=== PATIENT | male | born 1955 | race Caucasian/White ===

== ENCOUNTER 2020-12-13 15:58 | Outpatient (CLI) | payer MEDICAID, SELFPAY ==
[2020-12-13 16:34] LABS: Abs Immature Grans 0.06 10^3/uL (0.0-0.06); Absolute Basophil Count 0.08 10^3/uL (0.0-0.2); Absolute Eosinophil Count 0.69 10^3/uL (0.0-0.7); Absolute Monocyte Count 0.93 10^3/uL (0.1-0.8); Basophils % 0.7; HCT 42.2 % (40.0-50.0); HGB 13.9 g/dL (13.5-17.5); Immature Grans % 0.5; Lymphocytes % 19.2; MCH 29.7 pg (27.0-33.0); MCHC 32.9 % (32.0-36.0); MCV 90.2 fL (80-95); MPV 10.2 fL (8.0-11.0); Monocytes % 8.1; Neutrophils % 65.5; Nucleated RBC 0 %; Platelet Count 334 10^3/uL (130-400); RBC 4.68 10^6/uL (4.36-5.78); RDW 13.9 % (11.8-14.1); RDW-SD 46.4 fL; WBC 11.54 10^3/uL (4.4-10.8)
[2020-12-13 16:35] LABS: Absolute Lymphocyte Count 2.22 10^3/uL (1.2-3.4); Absolute Neutrophil Count 7.56 10^3/uL (1.2-6.7)
[2020-12-13 17:11] LABS: Iron 71 ug/dL (65-175); Total Iron Binding Capacity 352 ug/dL (250-450)
[2020-12-13 17:26] LABS: ALT 18 U/L (16-63); AST 8 U/L (15-37); Albumin 3.7 g/dL (3.4-5.0); Alkaline Phosphatase 86 U/L (46-116); Anion Gap 8.6 mmol/L (3-11); BUN 18 mg/dL (7-18); Bilirubin, Total 0.4 mg/dL (0.2-1.0); CO2 27.4 mmol/L (21.0-32.0); Calcium 8.8 mg/dL (8.5-10.1); Chloride 107 mmol/L (98-107); Ferritin 16 ng/mL (26-388); Glucose 101 mg/dL (74-106); Sodium 143 mmol/L (136-145); Total Protein 7.1 g/dL (6.4-8.2)
[2020-12-13 22:11] LABS: CEA <2.0 ng/mL (See Note)
[2020-12-18 19:16] LABS: DPYD Predicted Toxicity Risk Normal
== END 2020-12-13 15:59 | disposition home or self-care (01) ==
PROVIDERS: PCP Family Medicine; Visit Provider Internal Medicine Hematology & Oncology
DX: C20 Malignant neoplasm of rectum (principal)
CPT/HCPCS: 36415; 80053; 81232; 82378; 82728; 83540; 83550; 85025

== ENCOUNTER 2021-02-07 05:52 | Outpatient (RCR) | payer MEDICAID, SELFPAY ==
[2021-01-10] MEDS: Normal Saline Flush 10 ML SYR IVP (08:44)
[2021-01-10 08:52] LABS: Abs Immature Grans 0.05 10^3/uL (0.0-0.06); Absolute Basophil Count 0.05 10^3/uL (0.0-0.2); Absolute Eosinophil Count 0.49 10^3/uL (0.0-0.7); Absolute Monocyte Count 0.97 10^3/uL (0.1-0.8); Absolute Neutrophil Count 5.94 10^3/uL (1.2-6.7); Basophils % 0.5; Eosinophils % 5.2; HCT 37.7 % (40.0-50.0); HGB 12.6 g/dL (13.5-17.5); Immature Grans % 0.5; Lymphocytes % 21.1; MCH 29.8 pg (27.0-33.0); MCHC 33.4 % (32.0-36.0); MCV 89.1 fL (80-95); MPV 9.8 fL (8.0-11.0); Monocytes % 10.2; Neutrophils % 62.5; Nucleated RBC 0 %; Platelet Count 285 10^3/uL (130-400); RBC 4.23 10^6/uL (4.36-5.78); RDW 13.5 % (11.8-14.1); RDW-SD 43.5 fL
[2021-01-10 09:03] LABS: ALT 17 U/L (16-63); AST 12 U/L (15-37); Albumin 3.2 g/dL (3.4-5.0); Alkaline Phosphatase 78 U/L (46-116); Anion Gap 11.5 mmol/L (3-11); BUN 24 mg/dL (7-18); Bilirubin, Total 0.3 mg/dL (0.2-1.0); CO2 24.5 mmol/L (21.0-32.0); CREATININE 0.9 mg/dL (0.70-1.30); Calcium 8.2 mg/dL (8.5-10.1); Chloride 108 mmol/L (98-107); Glucose 113 mg/dL (74-106); Potassium 3.6 mmol/L (3.5-5.1); Sodium 144 mmol/L (136-145); Total Protein 6.2 g/dL (6.4-8.2)
[2021-01-24 07:28] LABS: Abs Immature Grans 0.05 10^3/uL (0.0-0.06); Absolute Basophil Count 0.08 10^3/uL (0.0-0.2); Absolute Eosinophil Count 0.38 10^3/uL (0.0-0.7); Absolute Lymphocyte Count 2.58 10^3/uL (1.2-3.4); Absolute Neutrophil Count 4.44 10^3/uL (1.2-6.7); Basophils % 0.9; Eosinophils % 4.4; HCT 37.7 % (40.0-50.0); HGB 12.6 g/dL (13.5-17.5); Immature Grans % 0.6; Lymphocytes % 29.9; MCH 29.9 pg (27.0-33.0); MCHC 33.4 % (32.0-36.0); MCV 89.5 fL (80-95); MPV 9.7 fL (8.0-11.0); Monocytes % 12.7; Neutrophils % 51.5; Nucleated RBC 0 %; Platelet Count 246 10^3/uL (130-400); RBC 4.21 10^6/uL (4.36-5.78); RDW 14.6 % (11.8-14.1); RDW-SD 46.2 fL; WBC 8.63 10^3/uL (4.4-10.8)
[2021-01-24 07:43] LABS: ALT 17 U/L (16-63); AST 11 U/L (15-37); Albumin 3.2 g/dL (3.4-5.0); Alkaline Phosphatase 76 U/L (46-116); Anion Gap 8.7 mmol/L (3-11); BUN 14 mg/dL (7-18); Bilirubin, Total 0.2 mg/dL (0.2-1.0); CO2 26.3 mmol/L (21.0-32.0); Calcium 8.2 mg/dL (8.5-10.1); Chloride 106 mmol/L (98-107); Glucose 108 mg/dL (74-106); Potassium 3.7 mmol/L (3.5-5.1); Sodium 141 mmol/L (136-145); Total Protein 6.2 g/dL (6.4-8.2)
[2021-01-27 09:37] LABS: CEA <2.0 ng/mL (See Note)
[2021-01-31 09:49] LABS: Abs Immature Grans 0.06 10^3/uL (0.0-0.06); Absolute Basophil Count 0.08 10^3/uL (0.0-0.2); Absolute Eosinophil Count 0.39 10^3/uL (0.0-0.7); Absolute Lymphocyte Count 2.08 10^3/uL (1.2-3.4); Absolute Monocyte Count 1.16 10^3/uL (0.1-0.8); Absolute Neutrophil Count 4.23 10^3/uL (1.2-6.7); Eosinophils % 4.9; HCT 43.2 % (40.0-50.0); HGB 14.3 g/dL (13.5-17.5); Immature Grans % 0.8; MCHC 33.1 % (32.0-36.0); MCV 90.6 fL (80-95); MPV 10.1 fL (8.0-11.0); Monocytes % 14.5; Neutrophils % 52.8; Nucleated RBC 0 %; Platelet Count 252 10^3/uL (130-400); RBC 4.77 10^6/uL (4.36-5.78); RDW 14.5 % (11.8-14.1); RDW-SD 48.1 fL
[2021-01-31 10:01] LABS: ALT 23 U/L (16-63); AST 14 U/L (15-37); Albumin 3.7 g/dL (3.4-5.0); Alkaline Phosphatase 94 U/L (46-116); Anion Gap 8.8 mmol/L (3-11); BUN 19 mg/dL (7-18); Bilirubin, Total 0.2 mg/dL (0.2-1.0); CO2 25.2 mmol/L (21.0-32.0); CREATININE 0.9 mg/dL (0.70-1.30); Calcium 8.6 mg/dL (8.5-10.1); Chloride 105 mmol/L (98-107); Glucose 105 mg/dL (74-106); Potassium 4.1 mmol/L (3.5-5.1); Sodium 139 mmol/L (136-145); Total Protein 7.1 g/dL (6.4-8.2)
[2021-01-31] MEDS: Normal Saline Flush 10 ML SYR IVP (10:14)
[2021-02-03 09:25] LABS: CEA <2.0 ng/mL (See Note)
[2021-02-07] MEDS: Normal Saline Flush 10 ML SYR IVP (07:40)
[2021-02-07 07:59] LABS: Abs Immature Grans 0.11 10^3/uL (0.0-0.06); Absolute Lymphocyte Count 2.28 10^3/uL (1.2-3.4); Basophils % 0.7; Eosinophils % 6.1; HCT 40.1 % (40.0-50.0); HGB 13.4 g/dL (13.5-17.5); Immature Grans % 0.7; Lymphocytes % 15.5; MCH 30.2 pg (27.0-33.0); MCHC 33.4 % (32.0-36.0); MCV 90.5 fL (80-95); Monocytes % 9.9; Neutrophils % 67.1; Nucleated RBC 0 %; Platelet Count 219 10^3/uL (130-400); RBC 4.43 10^6/uL (4.36-5.78); RDW 14.8 % (11.8-14.1); WBC 14.68 10^3/uL (4.4-10.8)
[2021-02-07 08:01] LABS: Absolute Monocyte Count 1.45 10^3/uL (0.1-0.8); Absolute Neutrophil Count 9.85 10^3/uL (1.2-6.7)
[2021-02-07 08:17] LABS: ALT 22 U/L (16-63); AST 12 U/L (15-37); Albumin 3.5 g/dL (3.4-5.0); Alkaline Phosphatase 84 U/L (46-116); Anion Gap 10.8 mmol/L (3-11); BUN 18 mg/dL (7-18); Bilirubin, Total 0.5 mg/dL (0.2-1.0); CO2 25.2 mmol/L (21.0-32.0); Calcium 8.7 mg/dL (8.5-10.1); Chloride 105 mmol/L (98-107); Glucose 101 mg/dL (74-106); Potassium 3.5 mmol/L (3.5-5.1); Sodium 141 mmol/L (136-145)
[2021-02-07 18:36] LABS: CEA <2.0 ng/mL (See Note)
== END 2021-02-08 23:59 | disposition home or self-care (01) ==
LOC: INF 05:52
PROVIDERS: PCP Family Medicine; Visit Provider Internal Medicine Hematology & Oncology
DX: C20 Malignant neoplasm of rectum (principal); Z45.2 Encounter for adjustment and management of vascular access device
CPT/HCPCS: 36415; 36591; 80053; 82378; 85025

== ENCOUNTER 2021-03-07 03:49 | Outpatient (RCR) | payer MEDICAID, SELFPAY ==
[2021-02-21] MEDS: Normal Saline Flush 10 ML SYR IVP (09:51)
[2021-02-21 10:00] LABS: Abs Immature Grans 0.03 10^3/uL (0.0-0.06); Absolute Basophil Count 0.07 10^3/uL (0.0-0.2); Absolute Eosinophil Count 0.81 10^3/uL (0.0-0.7); Absolute Lymphocyte Count 2.28 10^3/uL (1.2-3.4); Absolute Monocyte Count 0.95 10^3/uL (0.1-0.8); Absolute Neutrophil Count 5.06 10^3/uL (1.2-6.7); Basophils % 0.8; Eosinophils % 8.8; HCT 39.9 % (40.0-50.0); HGB 13.3 g/dL (13.5-17.5); Immature Grans % 0.3; Lymphocytes % 24.8; MCH 30.3 pg (27.0-33.0); MCHC 33.3 % (32.0-36.0); MCV 90.9 fL (80-95); MPV 9.9 fL (8.0-11.0); Monocytes % 10.3; Nucleated RBC 0 %; Platelet Count 210 10^3/uL (130-400); RBC 4.39 10^6/uL (4.36-5.78); RDW 15.1 % (11.8-14.1); RDW-SD 49.7 fL
[2021-02-21 10:12] LABS: Albumin 3.5 g/dL (3.4-5.0); BUN 16 mg/dL (7-18); Calcium 8.6 mg/dL (8.5-10.1); Glucose 105 mg/dL (74-106); Total Protein 6.8 g/dL (6.4-8.2)
[2021-02-21 10:13] LABS: ALT 42 U/L (16-63); AST 33 U/L (15-37); Alkaline Phosphatase 82 U/L (46-116); Anion Gap 8.1 mmol/L (3-11); Bilirubin, Total 0.5 mg/dL (0.2-1.0); CO2 24.9 mmol/L (21.0-32.0); Chloride 107 mmol/L (98-107); Potassium 3.8 mmol/L (3.5-5.1); Sodium 140 mmol/L (136-145)
[2021-02-21 17:22] LABS: CEA <2.0 ng/mL (See Note)
[2021-03-07] MEDS: Normal Saline Flush 10 ML SYR IVP (07:13)
[2021-03-07 07:21] LABS: Abs Immature Grans 0.04 10^3/uL (0.0-0.06); Absolute Basophil Count 0.05 10^3/uL (0.0-0.2); Absolute Eosinophil Count 0.36 10^3/uL (0.0-0.7); Absolute Lymphocyte Count 2.31 10^3/uL (1.2-3.4); Absolute Monocyte Count 1.24 10^3/uL (0.1-0.8); Basophils % 0.6; Eosinophils % 4.2; HCT 37.7 % (40.0-50.0); HGB 12.6 g/dL (13.5-17.5); Immature Grans % 0.5; Lymphocytes % 27.2; MCH 30.1 pg (27.0-33.0); MCHC 33.4 % (32.0-36.0); MCV 90.2 fL (80-95); MPV 10.3 fL (8.0-11.0); Monocytes % 14.6; Neutrophils % 52.9; Nucleated RBC 0 %; Platelet Count 172 10^3/uL (130-400); RBC 4.18 10^6/uL (4.36-5.78); RDW 15.5 % (11.8-14.1); RDW-SD 50.3 fL
[2021-03-07 07:42] LABS: ALT 19 U/L (16-63); AST 16 U/L (15-37); Albumin 3.2 g/dL (3.4-5.0); Alkaline Phosphatase 90 U/L (46-116); Anion Gap 9.2 mmol/L (3-11); BUN 14 mg/dL (7-18); Bilirubin, Total 0.3 mg/dL (0.2-1.0); CO2 25.8 mmol/L (21.0-32.0); Calcium 8.4 mg/dL (8.5-10.1); Chloride 106 mmol/L (98-107); Glucose 103 mg/dL (74-106); Potassium 3.5 mmol/L (3.5-5.1); Sodium 141 mmol/L (136-145); Total Protein 6.6 g/dL (6.4-8.2)
[2021-03-07 17:58] LABS: CEA <2.0 ng/mL (See Note)
== END 2021-03-11 23:59 | disposition home or self-care (01) ==
LOC: INF 03:49
PROVIDERS: PCP Family Medicine; Visit Provider Internal Medicine Hematology & Oncology
DX: C20 Malignant neoplasm of rectum (principal); Z45.2 Encounter for adjustment and management of vascular access device
CPT/HCPCS: 36591; 80053; 82378; 85025

== ENCOUNTER 2021-03-31 03:22 | Outpatient (RCR) | payer MEDICAID, SELFPAY ==
[2021-03-21] MEDS: Normal Saline Flush 10 ML SYR IVP (08:10)
[2021-03-21 08:45] LABS: Abs Immature Grans 0.07 10^3/uL (0.0-0.06); Absolute Basophil Count 0.06 10^3/uL (0.0-0.2); Absolute Eosinophil Count 0.22 10^3/uL (0.0-0.7); Absolute Lymphocyte Count 2.58 10^3/uL (1.2-3.4); Absolute Monocyte Count 1.66 10^3/uL (0.1-0.8); Absolute Neutrophil Count 3.38 10^3/uL (1.2-6.7); Basophils % 0.8; Eosinophils % 2.8; HCT 38.6 % (40.0-50.0); HGB 13.4 g/dL (13.5-17.5); Immature Grans % 0.9; Lymphocytes % 32.4; MCH 31.2 pg (27.0-33.0); MCHC 34.7 % (32.0-36.0); MPV 10.3 fL (8.0-11.0); Monocytes % 20.8; Neutrophils % 42.3; Nucleated RBC 0 %; Platelet Count 199 10^3/uL (130-400); RBC 4.29 10^6/uL (4.36-5.78); RDW 16.6 % (11.8-14.1); WBC 7.97 10^3/uL (4.4-10.8)
[2021-03-21 08:58] LABS: ALT 22 U/L (16-63); AST 18 U/L (15-37); Albumin 2.8 g/dL (3.4-5.0); Alkaline Phosphatase 62 U/L (46-116); Anion Gap 8.4 mmol/L (3-11); BUN 12 mg/dL (7-18); Bilirubin, Total 0.6 mg/dL (0.2-1.0); CO2 27.6 mmol/L (21.0-32.0); CREATININE 1.1 mg/dL (0.70-1.30); Calcium 8.1 mg/dL (8.5-10.1); Chloride 102 mmol/L (98-107); Glucose 119 mg/dL (74-106); Potassium 3.3 mmol/L (3.5-5.1); Sodium 138 mmol/L (136-145); Total Protein 5.8 g/dL (6.4-8.2)
[2021-03-21 09:11] LABS: Diff Comment Agrees w/ Instrument; RBC Morphology Normal
[2021-03-21 19:18] LABS: CEA <2.0 ng/mL (See Note)
[2021-03-28] MEDS: Normal Saline Flush 10 ML SYR IVP (07:48)
[2021-03-28 07:59] LABS: Abs Immature Grans 0.09 10^3/uL (0.0-0.06); Absolute Basophil Count 0.06 10^3/uL (0.0-0.2); Absolute Eosinophil Count 0.17 10^3/uL (0.0-0.7); Absolute Lymphocyte Count 2.55 10^3/uL (1.2-3.4); Absolute Monocyte Count 1.28 10^3/uL (0.1-0.8); Absolute Neutrophil Count 3.85 10^3/uL (1.2-6.7); Basophils % 0.8; Eosinophils % 2.1; HCT 37.7 % (40.0-50.0); HGB 12.4 g/dL (13.5-17.5); Immature Grans % 1.1; Lymphocytes % 31.9; MCH 30.5 pg (27.0-33.0); MCHC 32.9 % (32.0-36.0); MCV 92.6 fL (80-95); Neutrophils % 48.1; Nucleated RBC 0 %; Platelet Count 267 10^3/uL (130-400); RBC 4.07 10^6/uL (4.36-5.78); RDW 17.2 % (11.8-14.1); RDW-SD 58.5 fL
[2021-03-28 08:23] LABS: ALT 23 U/L (16-63); AST 22 U/L (15-37); Albumin 2.8 g/dL (3.4-5.0); Alkaline Phosphatase 78 U/L (46-116); Anion Gap 4.3 mmol/L (3-11); BUN 13 mg/dL (7-18); Bilirubin, Total 0.3 mg/dL (0.2-1.0); CO2 29.7 mmol/L (21.0-32.0); CREATININE 0.9 mg/dL (0.70-1.30); Calcium 8.4 mg/dL (8.5-10.1); Chloride 106 mmol/L (98-107); Glucose 104 mg/dL (74-106); Sodium 140 mmol/L (136-145)
[2021-03-28 17:55] LABS: CEA <2.0 ng/mL (See Note)
== END 2021-04-10 23:59 | disposition home or self-care (01) ==
LOC: INF 03:22
PROVIDERS: PCP Family Medicine; Visit Provider Internal Medicine Hematology & Oncology
DX: C20 Malignant neoplasm of rectum (principal); Z45.2 Encounter for adjustment and management of vascular access device
CPT/HCPCS: 36591; 80053; 82378; 85025

== ENCOUNTER 2021-04-25 00:52 | Outpatient (RCR) | payer MEDICAID, SELFPAY ==
[2021-04-11] MEDS: Normal Saline Flush 10 ML SYR IVP (08:36)
[2021-04-11 08:43] LABS: Abs Immature Grans 0.02 10^3/uL (0.0-0.06); Absolute Basophil Count 0.06 10^3/uL (0.0-0.2); Absolute Eosinophil Count 0.34 10^3/uL (0.0-0.7); Absolute Lymphocyte Count 2.05 10^3/uL (1.2-3.4); Absolute Neutrophil Count 5.94 10^3/uL (1.2-6.7); Basophils % 0.6; Eosinophils % 3.6; HCT 38.1 % (40.0-50.0); HGB 12.4 g/dL (13.5-17.5); Immature Grans % 0.2; Lymphocytes % 21.6; MCH 30.6 pg (27.0-33.0); MCHC 32.5 % (32.0-36.0); MCV 94.1 fL (80-95); MPV 10.6 fL (8.0-11.0); Monocytes % 11.6; Neutrophils % 62.4; Nucleated RBC 0 %; Platelet Count 155 10^3/uL (130-400); RBC 4.05 10^6/uL (4.36-5.78); RDW-SD 58.6 fL; WBC 9.51 10^3/uL (4.4-10.8)
[2021-04-11 09:06] LABS: ALT 27 U/L (16-63); AST 19 U/L (15-37); Albumin 3.2 g/dL (3.4-5.0); Alkaline Phosphatase 78 U/L (46-116); Anion Gap 9.9 mmol/L (3-11); BUN 14 mg/dL (7-18); Bilirubin, Total 0.3 mg/dL (0.2-1.0); CO2 27.1 mmol/L (21.0-32.0); CREATININE 0.9 mg/dL (0.70-1.30); Calcium 8.6 mg/dL (8.5-10.1); Chloride 105 mmol/L (98-107); Glucose 98 mg/dL (74-106); Potassium 3.8 mmol/L (3.5-5.1); Sodium 142 mmol/L (136-145); Total Protein 6.7 g/dL (6.4-8.2)
[2021-04-11 17:48] LABS: CEA <2.0 ng/mL (See Note)
[2021-04-25 08:30] LABS: Abs Immature Grans 0.04 10^3/uL (0.0-0.06); Absolute Basophil Count 0.05 10^3/uL (0.0-0.2); Absolute Eosinophil Count 0.51 10^3/uL (0.0-0.7); Absolute Lymphocyte Count 2.09 10^3/uL (1.2-3.4); Absolute Monocyte Count 1.15 10^3/uL (0.1-0.8); Absolute Neutrophil Count 5.32 10^3/uL (1.2-6.7); Basophils % 0.5; Eosinophils % 5.6; HCT 38.2 % (40.0-50.0); HGB 12.6 g/dL (13.5-17.5); Immature Grans % 0.4; Lymphocytes % 22.8; MCH 31.3 pg (27.0-33.0); MCV 94.8 fL (80-95); MPV 10.8 fL (8.0-11.0); Monocytes % 12.6; Neutrophils % 58.1; Nucleated RBC 0 %; Platelet Count 146 10^3/uL (130-400); RBC 4.03 10^6/uL (4.36-5.78); RDW 17.1 % (11.8-14.1); RDW-SD 59.3 fL; WBC 9.16 10^3/uL (4.4-10.8)
[2021-04-25] MEDS: Normal Saline Flush 10 ML SYR IVP (08:38)
[2021-04-25 08:45] LABS: ALT 27 U/L (16-63); AST 25 U/L (15-37); Albumin 3.4 g/dL (3.4-5.0); Alkaline Phosphatase 87 U/L (46-116); Anion Gap 10.1 mmol/L (3-11); BUN 13 mg/dL (7-18); Bilirubin, Total 0.6 mg/dL (0.2-1.0); CO2 26.9 mmol/L (21.0-32.0); CREATININE 0.9 mg/dL (0.70-1.30); Calcium 8.7 mg/dL (8.5-10.1); Chloride 104 mmol/L (98-107); Glucose 106 mg/dL (74-106); Potassium 3.3 mmol/L (3.5-5.1); Sodium 141 mmol/L (136-145); Total Protein 6.8 g/dL (6.4-8.2)
== END 2021-05-11 23:59 | disposition home or self-care (01) ==
LOC: INF 00:52
PROVIDERS: PCP Family Medicine; Visit Provider Internal Medicine Hematology & Oncology
DX: C20 Malignant neoplasm of rectum (principal); Z45.2 Encounter for adjustment and management of vascular access device
CPT/HCPCS: 36591; 80053; 82378; 85025

== ENCOUNTER 2021-06-04 02:11 | Outpatient (RCR) | payer MEDICAID, SELFPAY ==
--- OUTSIDE RECORDS SUMMARY | 2021-05-23 01:38 | XMS_ITS ---
:1955 Author Care Team Providers Name Role Phone DR. GEOFFREY NEAL Primary Care Provider [phone] DR. GEOFFREY NEAL Referring Provider [phone] Allergies Code Code System Name Reaction Severity Status Onset NKDA ? Notes: Some allergies listed in Document: #[id number] could not be added to this patient's chart. Please review this docu ment and add these allergies to the patient's chart manually as needed. Medications Name Status Start Date Stop Date ? ? albuterol sulfate HFA 90 mcg/actuation aerosol inhaler Active ? Not available INHALE 2 PUFFS BY MOUTH EVERY 4 HOURS NEEDED amoxicillin 500 mg capsule Active ? Not a vailable take 1 capsule by mouth every 8 hours before meals for 10 days amoxicillin 500 mg-potassium clavulanate Active ? Not available 125 mg tablet amoxicillin 875 mg tablet Active ? Not av ailable amoxicillin 875 mg-potassium clavulanate 125 mg tablet Active ? Not available TAKE 1 TABLET BY MOUTH EVERY 12 HOURS FOR 10 DAYS cephalexin 500 mg capsule Active ? Not av ailable desoximetasone 0.25 % topical ointment Active ? Not available APPLY TOPICALLY TO THE AFFECTED AREA(S) ONCE DAILY doxycycline monohydrate 100 mg capsule Active ? Not available TAKE 1 CAPSULE BY MOUTH TWICE DAILY FOR 10 DAYS hydrocodone 5 mg-acetaminophen 325 mg Active ? Not available tablet dsufayzl-wcoyobpdj-srraabtr 3.5 mg/mL-10,000 unit/mL-0.1% eye dr ops Active ? Not available INSTILL 1 DROP IN AFFECTED EYE(S) BY OPHTHALMIC ROUTE TWICE A D AY prednisone 20 mg tablet Active ? Not avai lable TAKE 2 TABLETS BY MOUTH ONCE DAILY FOR 5 DAYS sulfamethoxazole 800 mg-trimethoprim 160 Active ? Not available mg tablet Problems Name Status Onset Date Source ? Herpes Zoster Unknown ? ? Anemia Active ? ? Anxiety State Unknown ? ? Generalized Anxiety Disorder Active ? ? Depressive Disorder Active ? ? Hordeolum Active ? Encounter Chalazion Unknown ? ? Chalazion Active ? Encounter Infective Otitis Externa Unknown ? ? Impacted Cerumen Unknown ? ? Wax in Ear Canal Active ? Encounter Unilateral Hearing Loss Active ? Encounte r Inguinal Hernia Active ? Encounter Contact Dermatitis Due to Plants, Except Food Unknown ? ? Contact Dermatitis Unknown ? ? Contact Dermatitis Active ? Encounter Chronic Contact Dermatitis Active ? Encou nter Low Back Pain Unknown ? ? Headache Unknown ? ? Procedures Date Name Performed by ? 07/12/2004 Hernia Repair Information not avai lable Notes: (R) inguinal hernis [place] 07/12/2000 Other Information not avai lable Notes: pulmonary effusion, [place] Results Lab Results None recorded. Past Encounters 02/16/2020 Severe Chronic Obstructive Pulmonary Dis ease; Bronchospasm; Former Heavy Tobacco Smoker Geoffrey Neal MD: [address] [place] [phone], Ph. 01/15/2020 Chronic Obstructive Lung Disease Geoffrey Neal MD: [address] [place] [phone], Ph. 12/19/2019 Chronic Obstructive Lung Disease; Ex-smo ker Geoffrey Neal MD: [address] [place] [phone], Ph. 11/28/2019 Acute Exacerbation of Chronic Obstructiv e Airways Disease; Dyspnea; Cough Geoffrey Neal MD: [address] [place] [phone], Ph. Social History Tobacco Smoking Status Heavy Tobacco Smoker (1 pack per day) Vaccine List Vaccine Type Td(adult) unspecified formulation 10/13/2003 Plan of Care Reminders Provider Appointments None ? ? recorded. Lab None ? ? recorded. Referral None ? ? recorded. Procedures None ? ? recorded. Surgeries None ? ? recorded. Imaging None ? ? recorded. Vitals 02/16/2020 03:30PM OFFICE VISIT Height Weight BMI 6 ft 166 lbs 22.5 kg/m2 01/15/2020 11:00AM OFFICE VISIT Height Weight BMI 6 ft 168 lbs 22.8 kg/m2 12/19/2019 03:00PM OFFICE VISIT Height Weight BMI 6 ft 172 lbs 23.3 kg/m2 11/28/2019 09:00AM Telemedicine Height Weight BMI 6 ft 148 lbs 20.1 kg/m2 10/23/2019 09:30AM Telemedicine Height Weight BMI 6 ft 148 lbs 20.1 kg/m2 06/19/2019 03:00PM OFFICE VISIT Height Weight BMI Blood Pressure 6 ft 148 lbs 20.1 kg/m2 130/70 mm[Hg] 02/14/2019 04:30PM CONSULT Height Weight BMI Blood Pressure 6 ft 142 lbs 19.3 kg/m2 125/80 mm[Hg] 01/31/2019 10:00AM OFFICE VISIT Height Weight BMI Blood Pressure 6 ft 142 lbs 19.3 kg/m2 125/80 mm[Hg] 11/02/2018 11:00AM OFFICE VISIT Height Weight BMI Blood Pressure 6 ft 156 lbs 21.2 kg/m2 125/70 mm[Hg] 12/15/2017 03:30PM OFFICE VISIT Height Weight BMI Blood Pressure 6 ft 156 lbs 21.2 kg/m2 125/70 mm[Hg] 11/21/2015 11:00AM OFFICE VISIT Height Weight BMI Blood Pressure 6 ft 165 lbs 22.4 kg/m2 120/80 mm[Hg] 06/20/2015 10:15AM OFFICE VISIT Height Weight BMI Blood Pressure 6 ft 157 lbs 21.3 kg/m2 120/80 mm[Hg] 09/13/2014 02:30PM OFFICE VISIT Height Weight BMI Blood Pressure 6 ft 167 lbs 22.6 kg/m2 140/80 mm[Hg] 05/02/2014 03:45PM OFFICE VISIT Height Weight BMI Blood Pressure 6 ft 176 lbs 23.9 kg/m2 120/70 mm[Hg] 01/22/2011 11:00AM OFFICE VISIT Blood Pressure 120/70 mm[Hg] 12/10/2010 10:00AM OFFICE VISIT Blood Pressure 120/70 mm[Hg]
[2021-05-23] MEDS: Normal Saline Flush 10 ML SYR IVP (09:49)
[2021-05-23] MEDS: Heparin 500 UNITS/5 ML SYRINGE (09:50)
[2021-05-23 09:51] LABS: Abs Immature Grans 0.04 10^3/uL (0.0-0.06); Absolute Basophil Count 0.06 10^3/uL (0.0-0.2); Absolute Eosinophil Count 0.54 10^3/uL (0.0-0.7); Absolute Lymphocyte Count 2.35 10^3/uL (1.2-3.4); Absolute Monocyte Count 1.15 10^3/uL (0.1-0.8); Basophils % 0.6; Eosinophils % 5.6; HCT 38.6 % (40.0-50.0); HGB 12.6 g/dL (13.5-17.5); Immature Grans % 0.4; Lymphocytes % 24.4; MCH 31.1 pg (27.0-33.0); MCHC 32.6 % (32.0-36.0); MCV 95.3 fL (80-95); MPV 10.7 fL (8.0-11.0); Monocytes % 11.9; Neutrophils % 57.1; Nucleated RBC 0 %; Platelet Count 231 10^3/uL (130-400); RBC 4.05 10^6/uL (4.36-5.78); RDW 15.3 % (11.8-14.1); RDW-SD 53.7 fL; WBC 9.64 10^3/uL (4.4-10.8)
[2021-05-23 10:06] LABS: ALT 24 U/L (16-63); AST 22 U/L (15-37); Albumin 3.3 g/dL (3.4-5.0); Alkaline Phosphatase 99 U/L (46-116); Anion Gap 9.1 mmol/L (3-11); BUN 12 mg/dL (7-18); Bilirubin, Total 0.5 mg/dL (0.2-1.0); CO2 27.9 mmol/L (21.0-32.0); CREATININE 0.7 mg/dL (0.70-1.30); Calcium 8.5 mg/dL (8.5-10.1); Chloride 105 mmol/L (98-107); Glucose 97 mg/dL (74-106); Potassium 3.6 mmol/L (3.5-5.1); Sodium 142 mmol/L (136-145); Total Protein 6.8 g/dL (6.4-8.2)
[2021-05-23 18:41] LABS: CEA 0.9 ng/mL (See Note)
[2021-05-29 12:40] LABS: Abs Immature Grans 0.06 10^3/uL (0.0-0.06); Absolute Basophil Count 0.07 10^3/uL (0.0-0.2); Absolute Eosinophil Count 0.51 10^3/uL (0.0-0.7); Absolute Monocyte Count 1.23 10^3/uL (0.1-0.8); Basophils % 0.6; Eosinophils % 4.4; HCT 44.3 % (40.0-50.0); HGB 14.3 g/dL (13.5-17.5); Immature Grans % 0.5; Lymphocytes % 15.4; MCH 31.3 pg (27.0-33.0); MCHC 32.3 % (32.0-36.0); MCV 96.9 fL (80-95); MPV 10.4 fL (8.0-11.0); Monocytes % 10.6; Neutrophils % 68.5; Nucleated RBC 0 %; Platelet Count 269 10^3/uL (130-400); RBC 4.57 10^6/uL (4.36-5.78); RDW 14.4 % (11.8-14.1); RDW-SD 51.4 fL; WBC 11.59 10^3/uL (4.4-10.8)
[2021-05-29 12:41] LABS: Absolute Lymphocyte Count 1.78 10^3/uL (1.2-3.4); Absolute Neutrophil Count 7.94 10^3/uL (1.2-6.7)
[2021-05-29 12:59] LABS: ALT 28 U/L (16-63); AST 25 U/L (15-37); Albumin 3.9 g/dL (3.4-5.0); Alkaline Phosphatase 98 U/L (46-116); Anion Gap 10.2 mmol/L (3-11); BUN 16 mg/dL (7-18); Bilirubin, Total 0.9 mg/dL (0.2-1.0); CO2 25.8 mmol/L (21.0-32.0); Calcium 9.3 mg/dL (8.5-10.1); Chloride 104 mmol/L (98-107); Glucose 106 mg/dL (74-106); Potassium 4.2 mmol/L (3.5-5.1); Sodium 140 mmol/L (136-145); Total Protein 7.8 g/dL (6.4-8.2)
[2021-06-04] MEDS: Normal Saline Flush 10 ML SYR IVP (13:18)
[2021-06-04] MEDS: Heparin 500 UNITS/5 ML SYRINGE IV (13:19)
[2021-06-04 13:37] LABS: Abs Immature Grans 0.06 10^3/uL (0.0-0.06); Absolute Basophil Count 0.06 10^3/uL (0.0-0.2); Absolute Eosinophil Count 0.46 10^3/uL (0.0-0.7); Absolute Lymphocyte Count 1.29 10^3/uL (1.2-3.4); Absolute Monocyte Count 0.89 10^3/uL (0.1-0.8); Absolute Neutrophil Count 6.02 10^3/uL (1.2-6.7); Basophils % 0.7; Eosinophils % 5.2; HCT 37.6 % (40.0-50.0); HGB 12.1 g/dL (13.5-17.5); Immature Grans % 0.7; Lymphocytes % 14.7; MCH 31.1 pg (27.0-33.0); MCHC 32.2 % (32.0-36.0); MCV 96.7 fL (80-95); MPV 10.4 fL (8.0-11.0); Monocytes % 10.1; Neutrophils % 68.6; Nucleated RBC 0 %; Platelet Count 249 10^3/uL (130-400); RBC 3.89 10^6/uL (4.36-5.78); RDW 14.1 % (11.8-14.1); RDW-SD 50.1 fL; WBC 8.78 10^3/uL (4.4-10.8)
[2021-06-04 13:52] LABS: ALT 21 U/L (16-63); AST 16 U/L (15-37); Albumin 3.5 g/dL (3.4-5.0); Alkaline Phosphatase 89 U/L (46-116); Anion Gap 10.6 mmol/L (3-11); BUN 12 mg/dL (7-18); Bilirubin, Total 0.5 mg/dL (0.2-1.0); CO2 26.4 mmol/L (21.0-32.0); CREATININE 0.8 mg/dL (0.70-1.30); Calcium 8.9 mg/dL (8.5-10.1); Chloride 100 mmol/L (98-107); Glucose 96 mg/dL (74-106); Potassium 3.6 mmol/L (3.5-5.1); Sodium 137 mmol/L (136-145); Total Protein 7.1 g/dL (6.4-8.2)
== END 2021-06-10 23:59 | disposition home or self-care (01) ==
LOC: INF 02:11
PROVIDERS: PCP Family Medicine; Visit Provider Internal Medicine Hematology & Oncology
DX: C20 Malignant neoplasm of rectum (principal); Z45.2 Encounter for adjustment and management of vascular access device
CPT/HCPCS: 36591; 80053; 82378; 85025

== ENCOUNTER 2021-07-08 02:24 | Outpatient (RCR) | payer MEDICAID, SELFPAY ==
[2021-06-12] MEDS: Heparin 500 UNITS/5 ML SYRINGE IV (12:32)
[2021-06-12] MEDS: Normal Saline Flush 10 ML SYR IVP (12:32)
[2021-06-12 12:38] LABS: Abs Immature Grans 0.03 10^3/uL (0.0-0.06); Absolute Basophil Count 0.04 10^3/uL (0.0-0.2); Absolute Eosinophil Count 0.46 10^3/uL (0.0-0.7); Absolute Lymphocyte Count 0.95 10^3/uL (1.2-3.4); Absolute Monocyte Count 0.88 10^3/uL (0.1-0.8); Absolute Neutrophil Count 5.83 10^3/uL (1.2-6.7); Basophils % 0.5; Eosinophils % 5.6; HCT 37.8 % (40.0-50.0); HGB 12.2 g/dL (13.5-17.5); Immature Grans % 0.4; Lymphocytes % 11.6; MCH 31.5 pg (27.0-33.0); MCHC 32.3 % (32.0-36.0); MCV 97.7 fL (80-95); MPV 9.7 fL (8.0-11.0); Monocytes % 10.7; Neutrophils % 71.2; Nucleated RBC 0 %; Platelet Count 210 10^3/uL (130-400); RBC 3.87 10^6/uL (4.36-5.78); RDW 14.6 % (11.8-14.1); RDW-SD 52.3 fL; WBC 8.19 10^3/uL (4.4-10.8)
[2021-06-12 12:54] LABS: ALT 21 U/L (16-63); AST 16 U/L (15-37); Albumin 3.5 g/dL (3.4-5.0); Alkaline Phosphatase 80 U/L (46-116); Anion Gap 10.6 mmol/L (3-11); BUN 15 mg/dL (7-18); Bilirubin, Total 0.4 mg/dL (0.2-1.0); CO2 25.4 mmol/L (21.0-32.0); CREATININE 0.8 mg/dL (0.70-1.30); Calcium 8.7 mg/dL (8.5-10.1); Chloride 100 mmol/L (98-107); Glucose 99 mg/dL (74-106); Potassium 3.6 mmol/L (3.5-5.1); Sodium 136 mmol/L (136-145)
[2021-06-20] MEDS: Normal Saline Flush 10 ML SYR IVP (12:27)
[2021-06-20] MEDS: Heparin 500 UNITS/5 ML SYRINGE IV (12:27)
[2021-06-20 12:31] LABS: Abs Immature Grans 0.03 10^3/uL (0.0-0.06); Absolute Basophil Count 0.04 10^3/uL (0.0-0.2); Absolute Eosinophil Count 0.38 10^3/uL (0.0-0.7); Absolute Lymphocyte Count 0.81 10^3/uL (1.2-3.4); Basophils % 0.5; HCT 37.4 % (40.0-50.0); HGB 12.1 g/dL (13.5-17.5); Immature Grans % 0.4; Lymphocytes % 10.6; MCH 31.3 pg (27.0-33.0); MCHC 32.4 % (32.0-36.0); MCV 96.9 fL (80-95); MPV 9.3 fL (8.0-11.0); Monocytes % 11.7; Neutrophils % 71.8; Nucleated RBC 0 %; Platelet Count 199 10^3/uL (130-400); RBC 3.86 10^6/uL (4.36-5.78); RDW 15.1 % (11.8-14.1); RDW-SD 51.5 fL; WBC 7.66 10^3/uL (4.4-10.8)
[2021-06-20 12:56] LABS: ALT 19 U/L (16-63); AST 16 U/L (15-37); Albumin 3.6 g/dL (3.4-5.0); Alkaline Phosphatase 72 U/L (46-116); Anion Gap 9.4 mmol/L (3-11); BUN 16 mg/dL (7-18); Bilirubin, Total 0.7 mg/dL (0.2-1.0); CO2 24.6 mmol/L (21.0-32.0); CREATININE 0.9 mg/dL (0.70-1.30); Calcium 8.7 mg/dL (8.5-10.1); Chloride 105 mmol/L (98-107); Glucose 102 mg/dL (74-106); Potassium 3.4 mmol/L (3.5-5.1); Sodium 139 mmol/L (136-145); Total Protein 6.9 g/dL (6.4-8.2)
[2021-06-26] MEDS: Heparin 500 UNITS/5 ML SYRINGE IV (12:52)
[2021-06-26] MEDS: Normal Saline Flush 10 ML SYR IVP (12:52)
[2021-06-26 13:03] LABS: Abs Immature Grans 0.03 10^3/uL (0.0-0.06); Absolute Basophil Count 0.04 10^3/uL (0.0-0.2); Absolute Eosinophil Count 0.51 10^3/uL (0.0-0.7); Absolute Monocyte Count 0.99 10^3/uL (0.1-0.8); Absolute Neutrophil Count 5.39 10^3/uL (1.2-6.7); Basophils % 0.5; Eosinophils % 6.7; HCT 35.7 % (40.0-50.0); HGB 11.8 g/dL (13.5-17.5); Immature Grans % 0.4; Lymphocytes % 9.1; MCH 32.1 pg (27.0-33.0); MCHC 33.1 % (32.0-36.0); MPV 9.8 fL (8.0-11.0); Monocytes % 12.9; Neutrophils % 70.4; Nucleated RBC 0 %; Platelet Count 204 10^3/uL (130-400); RBC 3.68 10^6/uL (4.36-5.78); RDW 15.9 % (11.8-14.1); WBC 7.66 10^3/uL (4.4-10.8)
[2021-06-26 13:13] LABS: ALT 18 U/L (16-63); AST 17 U/L (15-37); Albumin 3.6 g/dL (3.4-5.0); Alkaline Phosphatase 70 U/L (46-116); Anion Gap 9.1 mmol/L (3-11); BUN 14 mg/dL (7-18); Bilirubin, Total 0.9 mg/dL (0.2-1.0); CO2 25.9 mmol/L (21.0-32.0); CREATININE 0.9 mg/dL (0.70-1.30); Calcium 8.5 mg/dL (8.5-10.1); Chloride 103 mmol/L (98-107); Glucose 103 mg/dL (74-106); Potassium 3.3 mmol/L (3.5-5.1); Sodium 138 mmol/L (136-145); Total Protein 6.7 g/dL (6.4-8.2)
[2021-07-08] MEDS: Heparin 500 UNITS/5 ML SYRINGE IV (12:36)
[2021-07-08] MEDS: Normal Saline Flush 10 ML SYR IVP (12:36)
[2021-07-08 12:56] LABS: Abs Immature Grans 0.05 10^3/uL (0.0-0.06); Absolute Basophil Count 0.03 10^3/uL (0.0-0.2); Absolute Eosinophil Count 0.61 10^3/uL (0.0-0.7); Absolute Lymphocyte Count 0.61 10^3/uL (1.2-3.4); Absolute Monocyte Count 1.29 10^3/uL (0.1-0.8); Absolute Neutrophil Count 6.43 10^3/uL (1.2-6.7); Basophils % 0.3; Eosinophils % 6.8; HGB 11.7 g/dL (13.5-17.5); Immature Grans % 0.6; Lymphocytes % 6.8; MCH 32.7 pg (27.0-33.0); MCHC 33.4 % (32.0-36.0); MCV 97.8 fL (80-95); Monocytes % 14.3; Neutrophils % 71.2; Nucleated RBC 0 %; Platelet Count 223 10^3/uL (130-400); RBC 3.58 10^6/uL (4.36-5.78); RDW 17.3 % (11.8-14.1); RDW-SD 62.2 fL; WBC 9.02 10^3/uL (4.4-10.8)
[2021-07-08 13:09] LABS: ALT 12 U/L (16-63); AST 10 U/L (15-37); Albumin 3.4 g/dL (3.4-5.0); Alkaline Phosphatase 77 U/L (46-116); Anion Gap 10.4 mmol/L (3-11); BUN 18 mg/dL (7-18); Bilirubin, Total 0.8 mg/dL (0.2-1.0); CO2 26.6 mmol/L (21.0-32.0); Calcium 8.5 mg/dL (8.5-10.1); Chloride 101 mmol/L (98-107); Glucose 101 mg/dL (74-106); Potassium 3.2 mmol/L (3.5-5.1); Sodium 138 mmol/L (136-145); Total Protein 6.9 g/dL (6.4-8.2)
== END 2021-07-11 23:59 | disposition home or self-care (01) ==
LOC: INF 02:24
PROVIDERS: PCP Family Medicine; Visit Provider Internal Medicine Hematology & Oncology
DX: C20 Malignant neoplasm of rectum (principal); Z45.2 Encounter for adjustment and management of vascular access device
CPT/HCPCS: 36591; 80053; 85025

== ENCOUNTER 2021-11-28 10:32 | Emergency (ER) | payer MEDICAID, SELFPAY ==
[2021-11-28 10:41] VITALS: BP 104/71; PULSE 83; RESP 16; TEMP 37.3; O2SAT 95
--- NOTE | 2021-11-28 10:45 | DI.RAD_ITS ---
Exam(s) XR ABD FLAT UPRIGHT PA CHEST EXAM: 2D digital imaging was performed. CLINICAL HISTORY: No ostomy output/ S/P Rectal CA. COMPARISON: No exams were available for comparison TECHNIQUE: Supine and upright abdomen and PA chest views were performed. Four views were obtained. FINDINGS: MEDIASTINUM: Normal. HEART: Normal. PULMONARY VASCULATURE: Normal. LUNGS: Clear. PLEURAL SPACE: No pleural effusion or pneumothorax. BONE:Within normal limits for the patient's age. OTHER FINDINGS:The Port-A-Cath is in good position. BOWEL GAS PATTERN: Nondistended. FREE AIR: None. CALCIFICATIONS: No radiopaque calcifications. OSSEOUS STRUCTURES: Normal for age. OTHER FINDINGS: There is an ostomy in the left abdomen. IMPRESSION: 1. Nonobstructive bowel gas pattern. 2. No acute pulmonary process. DATA REPOSITORY: RADIATION DOSE DELIVERED:
--- NOTE | 2021-11-28 10:46 | ED.GENADUL_ITS ---
Discharge Plan Disposition Patient Disposition: HOME Condition: Improving Discharge Details Clinical Impression: COVID-19, Constipation Primary Care Provider: Ana Maria Franco ED Provider: Mitchell Hightower Home Meds and New Rx's Prescriptions: New polyethylene glycol 3350 [Miralax] 17 gram/dose powder 17 g PO DAILY 7 Days Qty: 119 0RF Rx Instructions: If needed for constipation Continued ascorbic acid (vitamin C) [Vitamin C] 500 mg Tablet 500 mg PO DAILY fluticasone propion-salmeterol 250-50 mcg/dose Blister With Device 1 inh INHALATION DAILY calcium carbonate [Tums] 200 mg calcium (500 mg) Tablet,Chewable 200 mg PO PRN albuterol sulfate 90 mcg/actuation Hfa Aerosol Inhaler 2 puff INHALATION .[id number] Discharge Instructions Instructions: Constipation (ED), Droplet Precautions (ED), COVID-19 (Coronavirus Disease 2019) (ED), Face Coverings (Masks) and COVID-19 (ED) Additional Instructions: Your findings in the emergency department today included constipation for which she should take 150 cc of mag citrate this evening and repeat again tomorrow if needed. Then you should consider daily MiraLAX for soft stool as prescribed. Please follow-up with Dr. Soares and Dr. Kiser as planned. See enclosed COVID-19 instructions. Your SARS-CoV-2 PCR was positive today. Continue small, frequent sips of fluids as needed to maintain good hydration Medical Decision Making This is a 66-year-old male referred from the cancer center where he presented for scheduled 3-month follow-up. Patient has a history of rectal cancer, status post radiation (completed July 11, 2021), chemotherapy completed April 2021. He is status post resection with colostomy on October [address] Job Musa. He currently is in a surveillance phase with plan for outpatient colonoscopy in 6 months. The patient reported at his outpatient visit that he had no ostomy output of stool for a few days time. He has been passing flatus. He felt subjective hot and cold at home last night and notes similar in his son. He has not had a cough, vomiting, or abdominal pain. On exam his vital signs are within normal limits and he is afebrile. His abdomen is soft. Patient is high risk for dehydration, pseudoobstruction, must exclude viral syndrome in this patient recovering from cancer. IV access was established, screening obtained and patient referred for screening Xray. The laboratories are reassuring: White count 5, hematocrit 43, platelets 249. Slightly low sodium of 135, potassium 3.9, chloride 101, BUN 16, creatinine 1.1. LFTs unremarkable. Albumin 3.8. Urinalysis notable for specific gravity 1.03. X-ray reveals stool throughout, no evidence of obstruction. The patient's COVID 19 test was positive. Influenza and RSV were negative. Discussed with him home management. For his constipation, will trial mag citrate followed by MiraLAX daily. He is stable and appropriate for discharge. HPI General Mode of arrival: ambulatory . Date/Time Provider Initiated Documentation: 11/28/21 10:33 . Limitations to Documentation: no limitations . Information obtained by: patient and old records reviewed . History of Present Illness 66 year old M presents to the emergency department with the chief complaint of No colostomy output. History of rectal ca, described as mild, Patient reports no radiation. Patient started experiencing this day(s) and it has been constant. No relieving factors improve symptom(s), No exacerbating factors reported . Patient notes other ([place] hot and cold, mild malaise and weakness); denies cough, headaches, shortness of breath and syncope. Patient did receive the following treatments prior to arrival, none Related Data Home Medications Medication Instructions Recorded Confirmed albuterol sulfate 90 mcg/actuation 2 puff inhalation .[id number] 11/28/21 11/28/21 aerosol inhaler ascorbic acid (vitamin C) 500 mg 500 mg PO DAILY 11/28/21 11/28/21 tablet (Vitamin C) calcium carbonate 200 mg calcium 200 mg PO PRN 11/28/21 (500 mg) chewable tablet (Tums) fluticasone 250 mcg-salmeterol 50 1 inh inhalation DAILY 11/28/21 11/28/21 mcg/dose blistr powdr for inhalation polyethylene glycol 3350 17 17 g PO DAILY 7 days #119 grams 11/28/21 gram/dose oral powder (Miralax) Previous Rx's Medication Instructions Recorded polyethylene glycol 3350 17 17 g PO DAILY 7 days #119 grams 11/28/21 gram/dose oral powder (Miralax) Allergies Allergy/AdvReac Type Severity Reaction Status Date / Time No Known Allergies Allergy Unverified 11/28/21 10:46 General Stated Complaint: Abd Prob JORDANA: 3 Review of Systems Narrative: No abdominal bloating, no vomiting, no upper respiratory symptoms. Denies abdominal pain or bloating. 8 systems were reviewed and otherwise negative. Patient immunized against COVID 9 PFSH All Active Problems (Updated 11/28/21 @ 12:38 by Mitchell Hightower MD) COVID-19 (Acute) Constipation (Acute) Medical History Eczema Generalized anxiety disorder Surgical History Repair of inguinal hernia right Social History Smoking/Tobacco Use Status: Former Tobacco Use Smoking risk assessment performed?: Yes Alcohol Intake: former Drug use: Occasionally Substance use type: marijuana Exam Narrative Exam Narrative: GEN: awake, alert, oriented 3. Pleasant, well groomed, interactive. HEAD: Normocephalic, atraumatic ENT: Mucous membranes moist, oropharynx unremarkable, External ear exam unremark able EYES: PERRL, EOMI NECK: Full ROM, no LANEY, no menigismus CHEST/RESP: Nontender, clear to auscultation bilateral, no wheeze/rhonchi/rales CARDIOVASCULAR: RRR, no murmur, rub torsten. 2+ Rad pulse bilateral ABDOMEN: Soft, left lower quadrant ostomy intact with gas in bag, nontender, no mass. + bowel sounds EXT: Full ROM, no edema, no rash Neuro: Grossly normal neurologic exam, conversant, interactive. Psych: Speech fluent, thoughts congruent, affect normal Course Vital Signs Vital signs: Vital Signs Temperature 37.3 C 11/28/21 10:41 Pulse 83 11/28/21 10:41 Respiratory Rate 16 11/28/21 10:41 Blood Pressure 104/71 11/28/21 10:41 Pulse Oximetry 95 11/28/21 10:41 Temperature 37.3 C 11/28/21 10:41 Temperature Source Oral 11/28/21 10:41 Pulse 83 11/28/21 10:41 Respiratory Rate 16 11/28/21 10:41 Respiratory Effort 11/28/21 10:41 Blood Pressure 104/71 11/28/21 10:41 Blood Pressure Position Sitting 11/28/21 10:41 Pulse Oximetry 95 11/28/21 10:41 Oxygen Delivery Method Room Air 11/28/21 10:41 Oxygen Flow Rate 0 11/28/21 10:41 Pain Level 0 11/28/21 10:41
[2021-11-28] MEDS: Normal Saline 1,000 ML 1000 ML IV (11:15)
[2021-11-28 11:26] LABS: Abs Immature Grans 0.03 10^3/uL (0.0-0.06); Absolute Basophil Count 0.04 10^3/uL (0.0-0.2); Absolute Eosinophil Count 0.17 10^3/uL (0.0-0.7); Absolute Lymphocyte Count 0.23 10^3/uL (1.2-3.4); Absolute Monocyte Count 1.05 10^3/uL (0.1-0.8); Absolute Neutrophil Count 4.38 10^3/uL (1.2-6.7); Basophils % 0.7; Eosinophils % 2.9; HCT 43.6 % (40.0-50.0); HGB 14.2 g/dL (13.5-17.5); Immature Grans % 0.5; Lymphocytes % 3.9; MCH 29.8 pg (27.0-33.0); MCHC 32.6 % (32.0-36.0); MCV 91 fL (80-95); MPV 10.1 fL (8.0-11.0); Monocytes % 17.8; Neutrophils % 74.2; Platelet Count 249 10^3/uL (130-400); RBC 4.77 10^6/uL (4.36-5.78); RDW 13.3 % (11.8-14.1); RDW-SD 44.9 fL
[2021-11-28 11:30] LABS: Bilirubin Negative (Negative); Blood Negative (Negative); Clarity Clear (Clear); Glucose Negative (Negative); Ketones Negative (Negative); Leukocyte Esterase Negative (Negative); Nitrite Negative (Negative); Specific Gravity >= 1.030 (1.005-1.025); Urobilinogen 0.2 EU/dL (Up TO 0.2)
[2021-11-28 11:34] LABS: Bacteria Negative HPF (Negative); C & S Indicated? No; Casts Negative LPF (Negative); Crystals Negative HPF (Negative); Epithelial Cells Rare HPF (Negative); Mucus Negative (Negative); RBC 0-2 HPF (0-2); WBC 0-2 HPF (0-5)
[2021-11-28 11:40] LABS: ALT 17 U/L (16-63); AST 14 U/L (15-37); Albumin 3.8 g/dL (3.4-5.0); Alkaline Phosphatase 95 U/L (46-116); Anion Gap 7.8 mmol/L (3-11); BUN 16 mg/dL (7-18); Bilirubin, Total 0.6 mg/dL (0.2-1.0); CO2 26.2 mmol/L (21.0-32.0); CREATININE 1.1 mg/dL (0.70-1.30); Calcium 8.8 mg/dL (8.5-10.1); Chloride 101 mmol/L (98-107); Glucose 106 mg/dL (74-106); Magnesium 2.6 mg/dL (1.8-2.4); Potassium 3.9 mmol/L (3.5-5.1); Sodium 135 mmol/L (136-145); Total Protein 7.7 g/dL (6.4-8.2)
[2021-11-28 12:06] LABS: Influenza A PCR Negative (Negative); Influenza B PCR Negative (Negative); RSV PCR Negative (Negative)
[2021-11-28 12:28] LABS: COVID-19 PCR Positive (Negative); Source Nasopharynx
[2021-11-28 12:52] VITALS: BP 107/75; PULSE 71; RESP 17; O2SAT 99
== END 2021-11-28 13:30 | disposition home or self-care (01) ==
PROVIDERS: Emergency Provider Emergency Medicine; PCP Family Medicine
DX: U07.1 COVID-19 (principal); K59.00 Constipation, unspecified
CPT/HCPCS: 80053; 87637; 96360; 99283; 74022; 81003; 81015; 83735; 85025